=== PATIENT | female | born 1955 | race Asian ===

== ENCOUNTER → 2022-02-15 | Outpatient (CLI) | payer MEDICARE, SELFPAY ==
--- NOTE | 2022-02-15 10:45 | MRI_ITS ---
STUDY: MRI RIGHT SHOULDER REASON FOR EXAM: Right shoulder pain for 5 months or more, decreased range of motion, decreased strength. TECHNIQUE: Standardized fat and water weighted pulse sequences were obtained in all 3 orthogonal planes. COMPARISON: None. FINDINGS: Normal supraspinatus tendon. Normal infraspinatus tendon. Normal subscapularis tendon. Normal teres minor tendon. Normal supraspinatus muscle. Normal infraspinatus muscle. Normal subscapularis muscle. Normal teres minor muscle. Normal glenohumeral articulation. Normal humeral head and visualized proximal humerus. There is a possible small SLAP tear (proton-density coronal image 13). Normal intracapsular long biceps tendon. Normal capsulo- ligamentous complex. There is mild acromioclavicular arthrosis without substantial undersurface osteophytes (T2 sagittal image 13). There is a Type I morphology (flat undersurface), with a neutral orientation. There is subacromial-subdeltoid bursal fluid (T2 coronal images 9-16). Normal visualized coracohumeral and coracoacromial ligaments. Normal deltoid muscle. Normal trapezius muscle. MRI/Upper Ext Joint Only(Routine) IMPRESSION: Subacromial-subdeltoid bursitis. Mild acromioclavicular arthrosis. Possible small SLAP lesion. No demonstrated rotator cuff tear. Electronically Signed: Keith Rene MD at 11:18 EDT ,
== END | disposition home or self-care (01) ==
PROVIDERS: PCP Nurse Practitioner Family; Referring Provider Nurse Practitioner Family; Visit Provider Nurse Practitioner Family
DX: M25.511 Pain in right shoulder (principal)
CPT/HCPCS: 73221

== ENCOUNTER → 2022-05-20 | Outpatient (CLI) | payer MEDICARE, SELFPAY ==
--- NOTE | 2022-05-20 07:08 | ECHOD_ITS ---
Reason For Study: CHEST PAIN Procedure This was a 2D Doppler, Color Flow transthoracic echocardiogram. Exam performed in department. Left Ventricle Normal size and thickness. The left ventricular ejection fraction is 60 %. Diastolic function is indeterminate. Right Ventricle Normal right ventricle. Atria The left and right atria are normal. Mitral Valve Mild (1+) mitral valve insufficiency. Tricuspid Valve Mild tricuspid valve insufficiency. Normal pulmonary artery pressure. Aortic Valve Trisinus/trileaflet aortic valve. Pulmonic Valve The pulmonic valve is not well visualized. Great Vessels Moderate atherosclerosis of the ascending aorta. Pericardium/Pleural No pericardial effusion. MMode/2D Measurements & Calculations LVIDd: 4.0 cm IVSd: 1.1 cm Ao root diam: 2.8 cm LVIDs: 2.6 cm LVPWd: 1.1 cm RVDd: 2.8 cm FS: 35.7 % LAV(MOD-bp): 40.9 ml LVAd ap4: 23.3 cm2 LVAd ap2: 17.6 cm2 LAV(MOD-bp) Indexed: 24.4 ml/m2 LVLd ap4: 6.8 cm LVLd ap2: 6.4 cm LAV(MOD-sp2): 34.6 ml EDV(MOD-sp4): 66.2 ml EDV(MOD-sp2): 41.5 ml LAV(MOD-sp4): 39.5 ml EDV(sp4-el): 67.6 ml EDV(sp2-el): 40.6 ml LVAs ap4: 12.3 cm2 LVAs ap2: 8.7 cm2 LVLs ap4: 5.0 cm LVLs ap2: 5.0 cm ESV(MOD-sp4): 25.1 ml ESV(MOD-sp2): 13.3 ml ESV(sp4-el): 25.3 ml ESV(sp2-el): 12.7 ml EF(MOD-sp4): 62.0 % EF(MOD-sp2): 67.9 % EF(sp4-el): 62.5 % SV(MOD-sp4): 41.1 ml SV(MOD-sp2): 28.1 ml SV(sp4-el): 42.2 ml LA dimension(2D): 3.3 cm LA A4 area: 13.6 cm2 RA A4 area: 14.5 cm2 Time Measurements MV dec time: 0.21 sec Doppler Measurements & Calculations MV E max [place]: 66.5 cm/sec Lat Peak E' [place]: 6.7 cm/sec Med Peak E' [place]: 7.9 cm/sec MV A max [place]: 74.8 cm/sec E/E' lat: 9.9 E/E' med: 8.5 MV E/A: 0.89 MV dec slope: 311.0 cm/sec2 Ao V2 max: 150.9 cm/sec LV V1 max: 85.1 cm/sec Ao max P.1 mmHg LV V1 max P.9 mmHg PA V2 max: 88.2 cm/sec TR max [place]: 250.9 cm/sec TR max P.2 mmHg ECHO/Echo Complete Interpretation Summary The left ventricular ejection fraction is 60 %. Diastolic function is indeterminate. Mild (1+) mitral valve insufficiency. Mild tricuspid valve insufficiency. Moderate atherosclerosis of the ascending aorta. 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 Recommend ultrasound for fur ther evaluation. Ordering Physician: Denis Beck Referring Physician: Keith Beck Performed By: Ana Shields, CHARLY, RVT
--- NOTE | 2022-05-20 11:26 | STRESSREP_ITS ---
Stress Test Report Date: 05/20/2022 Procedure: Exercise tolerance test/imaging study Indications: Chest pain Consent: Per the patient Procedure: The patient exercised on a Shivam protocol for 3 minutes and 52 seconds achieving a peak heart rate of 139 bpm (92% predicted maximal heart rate) with a peak blood pressure 190/68 mmHg and a peak MET capacity of 6.6 METs. The baseline ECG demonstrated sinus bradycardia. The peak exercise ECG demonstrated sinus tachycardia with no ischemic change. There were no cardiac dysrhythmias pretest, during exercise, or recovery. The functional capacity was considered suboptimal. There was no complaint of chest discomfort during exercise or recovery. The examination was discontinued secondary to target heart rate being achieved and fatigue. The patient was injected with 11.4 mCi of technetium 99m Cardiolite and subsequently rest SPECT Cardiolite nuclear imaging was obtained in the horizontal long, vertical long, and short axis views. Post-exercise, the patient was injected with 31.1 mCi of technetium 99m Cardiolite and subsequently stress SPECT Cardiolite nuclear imaging was obtained in the horizontal long, vertical long, and short axis views. A gated Cardiolite study at peak stress was obtained. Rest and stress SPECT Cardiolite nuclear imaging status post realignment, normalization, and attenuation correction, demonstrates the appearance of relative uniform tracer uptake and myocardial perfusion appearing within normal limits. There is end systolic thickening and brightening. The gated Cardiolite study demonstrates myocardial thickening and inward wall motion. The reported LVEF is 31.1%. Impression: 1. Technically adequate (percent predicted maximal heart rate greater than 85%) exercise tolerance test 2. Peak exercise ECG with no ischemic changes. 3. There were no cardiac dysrhythmias pretest, during exercise, or recovery 4. Rest and stress SPECT Cardiolite nuclear imaging demonstrate no fixed or reversible perfusion defect. 5. The gated Cardiolite study reports an LVEF of 76%. This note was generated with [employer] software. It may contain incorrect words, spelling, and punctuation that were not noted in checking the note before signing.
== END | disposition home or self-care (01) ==
LOC: CVS 07:06
PROVIDERS: PCP Nurse Practitioner Family; Visit Provider Nurse Practitioner Family
DX: R07.9 Chest pain, unspecified (principal); R06.02 Shortness of breath; I10 Essential (primary) hypertension; R94.31 Abnormal electrocardiogram [ECG] [EKG]
CPT/HCPCS: 78452; 93017; 93306; A9500; A4216; J2785

== ENCOUNTER → 2022-08-04 | Outpatient (CLI) | payer MEDICARE, SELFPAY ==
--- NOTE | 2022-08-04 09:41 | BI_ITS ---
MAMMOGRAPHY - BILATERAL SCREENING REASON FOR EXAM: Female, 67 years old. Routine annual screening examination. PERTINENT HISTORY: Non-contributory. TECHNIQUE: Digital bilateral breast quintin (3D mammographic acquisition) in the CC and MLO projections. 2-D mediolateral oblique (MLO) and craniocaudad (CC) views of both breasts were obtained. CAD: Full Field Digital Mammography with Computer Added Detection was performed. COMPARISON: Comparison is made with prior outside examination dated 01/18/2021.. FINDINGS: Breast Composition: The breasts are heterogeneously dense, which may obscure small masses. There are no dominant masses or suspicious calcifications. No other significant abnormalities are identified. There has been no significant change since the prior study. BI/SCRN MAMM (CAD)W/QUINTIN BILAT IMPRESSION: Stable bilateral screening mammogram. Yearly follow-up mammogram recommended. (A) ASSESSMENT CATEGORY: BIRADS Category 1: Negative. A letter regarding these results will be sent to the patient by the facility within 30 days. Approximately 10% of breast cancers are not detected by mammography. A normal mammogram should not delay biopsy of a clinically suspicious abnormality. [id number] Electronically Signed: Saeid Cook MD at 12:39 EST ,
--- NOTE | 2022-08-04 09:50 | BD_ITS ---
STUDY: DUAL ENERGY X-RAY ABSORPTIOMETRY / DXA REASON FOR EXAM: Female, 67 years old. [id number] TECHNIQUE: Bone Mineral Density (BMD) measurements of lumbar spine and bilateral hips were obtained. COMPARISON: None. FINDINGS: Lumbar Spine (L1-L4): g/cm2 (0.833) / T-score (-1.9) / Z-score (0.1) Findings are suggestive of osteopenia with a moderate fracture risk. Left Femur Total: g/cm2 (0.712) / T-score (-1.9) / Z-score (-0.4) Left Femoral Neck: g/cm2 (0.567) / T-score (-2.5) / Z-score (-0.8) Right Femur Total: g/cm2 (0.713) / T-score (-1.9) / Z-score (-0.4) Right Femoral Neck: g/cm2 (0.590) / T-score (-2.3) / Z-score (-0.6) BD/Dexa Bone Density Study IMPRESSION: The patient is considered osteopenic as outlined below according to World [employer] Organization (WHO) criteria with a high fracture risk. Reference Information: The T-score is the number of standard deviations above or below the standard which is normal for young adults at their peak bone mineral density. The World Health Organization (WHO) interprets the T-scores as follows: Above -1 Normal bone density Between -1 and -2.5 Osteopenia Equal to / or below -2.5 Osteoporosis As a practical clinical guideline, osteopenia may be graded as follows: Mild -1 through -1.5 Moderate -1.6 through -2.0 Severe -2.1 through -2.4 The Z-score is the number of standard deviations above or below age-matched controls. A Z-score of less than -1.5 would be considered abnormal. References: 1. NIH Osteoporosis and Related Bone Diseases www osteo.org 2. International Society for Clinical Densitometry www iscd.org 3. National Osteoporosis Foundation www nof.org Electronically Signed: Saeid Cook MD at 17:19 EST ,
== END | disposition home or self-care (01) ==
LOC: OPBD 09:38
PROVIDERS: PCP Nurse Practitioner Family; Visit Provider Nurse Practitioner Family
DX: Z12.31 Encounter for screening mammogram for malignant neoplasm of breast (principal); Z78.0 Asymptomatic menopausal state
CPT/HCPCS: 77063; 77067; 77080

== ENCOUNTER → 2022-10-04 | Outpatient (CLI) | payer MEDICARE, SELFPAY ==
[2022-10-04 12:45] LABS: Absolute Lymphocyte Count 1.83 X10^3/uL (0.83-4.51); Absolute Neutrophil Count 3.8 X10^3/uL (2.0-7.7); Basophil# 0.07 X10^3/uL; Basophil% 1.1 % (0-1); Eosinophil# 0.07 X10^3/uL; Eosinophils% 1.1 % (0-5); Hematocrit 38.8 % (37-47); Hemoglobin 13.3 g/dL (12.0-15.0); Lymphocyte # 1.83 X10^3/ul (0.83-4.51); Lymphocyte % 29.7 % (19-41); Mean Corp Hgb Conc 34.3 g/dL (32-36); Mean Corpuscular Hgb 25.2 pg (27.0-32.0); Mean Corpuscular Volume 73.5 fL (81-99); Mean Platelet Vol. 9.3 fl (6.2-12.0); Monocyte# 0.38 X10^3/uL; Monocyte% 6.2 % (0-10); NRBC Flagged by Analyzer 0 % (0-5); Neutrophil # 3.79 X10^3/uL (2.7-7.7); Neutrophil % 61.6 % (47-70); Platelet Count 311 K/mm3 (150-450); RBC Distribution Width CV 14.6 % (11.6-14.6); RBC Distribution Width SD 37.2 fl (35.1-43.9); Red Blood Count 5.28 M/mm3 (4.2-5.4); White Blood Count 6.2 K/mm3 (4.4-11.0)
[2022-10-04 13:52] LABS: ALB/GLOB Ratio 1.1 RATIO (0.9-2.4); AST(SGOT) 21 U/L (15-37); Alanine Aminotransfer ALT/SGPT 25 U/L (13-56); Albumin, Serum 4.2 g/dL (3.2-5.0); Alkaline Phosphatase 56 U/L (45-117); Anion Gap 6 (5-15); BUN 23 mg/dL (7-18); BUN/Creat Ratio 26.2 RATIO (10-20); Calcium,Total 9.5 mg/dL (8.5-10.1); Chloride 107 mmol/L (98-107); Cholesterol 196 mg/dL (200); Creatinine, Serum 0.88 mg/dL (0.55-1.02); EST Glomerular Filtration Rate 68 mL/min (>60); Est Glom Filt Rate - Afr Amer 82 mL/min (>60); Globulin 3.7 g/dL (2.2-4.2); Glucose 88 mg/dL (74-106); High Density Lipoprotein 75 mg/dL; Potassium 3.6 mmol/L (3.5-5.1); Protein, Total 7.9 g/dL (6.4-8.2); Sodium Level 136 mmol/L (136-145); Thyroid Stim Hormone (TSH) 0.98 uIU/mL (0.358-3.74); Triglycerides 99 mg/dL; Very Low Density Lipoprotein 20 mg/dL (5-40)
== END | disposition home or self-care (01) ==
LOC: MFPLAB 10:32
PROVIDERS: PCP Family Medicine; Visit Provider Family Medicine
DX: I10 Essential (primary) hypertension (principal); E78.5 Hyperlipidemia, unspecified; R73.01 Impaired fasting glucose
CPT/HCPCS: 36415; 80053; 80061; 83036; 84443; 85025